=== PATIENT | female | born 1975 | race Caucasian/White ===

== ENCOUNTER 2021-08-17 01:33 | Day surgery (SDC) | payer BC, SELFPAY ==
[2021-08-01 15:14] VITALS: BMI 31.5
--- NOTE | 2021-08-16 13:07 | PM.HPGS ---
History of Present Illness History of Present Illness Consent: Risks, benefits, and alternatives have been discussed and questions answered. Patient agrees to proceed with procedure. Chief complaint: neoplasm screening Narrative: Marisa Venegas is a 45 year old female referred for colon cancer screening Review of Systems Review of Systems: All systems reviewed & are unremarkable except as noted in HPI and below PMFSH Social History Social History Smoking status: Never smoker Alcohol intake: current Alcohol use details: ONCE MONTHLY Living arrangements: with family Spiritual care concerns: No Meds Home Medications and Allergies Home Medications Medication Instructions Recorded Confirmed Type cetirizine 10 mg PO DAILY 08/01/21 08/01/21 History cholecalciferol (vitamin D3) 50 mcg PO DAILY 08/01/21 08/01/21 History [Vitamin D3] metoprolol succinate 12.5 mg PO DAILY 08/01/21 08/01/21 History multivit with min-folic acid 1 tablet PO DAILY 08/01/21 08/01/21 History [Adult One Daily Multivitamin] omega-3 fatty acids-vitamin E 1 cap PO DAILY 08/01/21 08/01/21 History [Fish Oil] Allergies Allergy/AdvReac Type Severity Reaction Status Date / Time No Known Allergies Allergy Verified 08/17/21 06:50 Exam Const: General: alert Orientation/consciousness: patient oriented x3 Resp: Auscultation: clear to auscultation bilaterally Cardio: Rhythm: regular rhythm GI: GI Palp: Yes Soft to palpation and No Tenderness to palpation present (GI) Neuro: General: patient oriented x3 Assessment and Plan Assessment and plan (1) Colon cancer screening: Code(s): Z12.11 - Encounter for screening for malignant neoplasm of colon Status: Acute Assessment and Plan: Colonoscopy with possible biopsy or polypectomy or cautery or injection of substances.
[2021-08-17 06:51] VITALS: BP 144/85; PULSE 110; RESP 18; TEMP 37; O2SAT 98; BMI 33.2
[2021-08-17] MEDS: LACTATED RINGERS 1,000 ML 150 ML IV CONT (07:02)
--- NOTE | 2021-08-17 07:54 | WPDANESEPPF ---
Anes - Initial Pre Proc Eval Procedure: Operation Date: 08/17/21 08:00 Proposed Procedures p Screening Colonoscopy - Jhon Rodríguez MD Date/Time: 08/17/21 07:54 Surgeon: Jhon Rodríguez MD Pre Op Diagnosis: neoplasm screening Patient Data Age: 45 Gender: F Height: 1.65 m Weight: 90.5 kg Last Vital Signs Temp 98.6 F 08/17/21 06:51 Pulse 110 H 08/17/21 06:51 Resp 18 08/17/21 06:51 BP 144/85 H 08/17/21 06:51 Pulse Ox 98 08/17/21 06:51 Allergies Allergy/AdvReac Type Severity Reaction Status Date / Time No Known Allergies Allergy Verified 08/17/21 06:50 Home Medications Medication Instructions Recorded Confirmed Type cetirizine 10 mg PO DAILY 08/01/21 08/01/21 History cholecalciferol (vitamin D3) 50 mcg PO DAILY 08/01/21 08/01/21 History [Vitamin D3] metoprolol succinate 12.5 mg PO DAILY 08/01/21 08/01/21 History multivit with min-folic acid 1 tablet PO DAILY 08/01/21 08/01/21 History [Adult One Daily Multivitamin] omega-3 fatty acids-vitamin E 1 cap PO DAILY 08/01/21 08/01/21 History [Fish Oil] Patient hx anesthesia problems: none Family hx anesthesia problems: none Results Review: All pre-operative results and documents have been reviewed as part of the pre-operative evaluation. [facility] Past Medical History Medical History (Updated 08/17/21 @ 07:49 by Wm Bautista MD) Hypertension SELWYN (obstructive sleep apnea) Social History Social History Smoking status: Never smoker Alcohol intake: current Alcohol use details: ONCE MONTHLY Living arrangements: with family Spiritual care concerns: No Anes - Eval Final PreProcedure Day of Procedure 08/17/21 07:54 Patient weight: obese Heart: regular rate and rhythm Lungs: clear to auscultation Airway: Mallampati scale class II Neurological: alert and oriented Last oral intake: >/= 8 hours ASA classification: II Emergent: no Anesthetic plan: proceed Anesthesia type and monitoring: general GIVS and standard monitoring Results Review: All pre-operative results and documents have been reviewed as part of the pre-operative evaluation. Informed Consent: The patient's anesthetic plan and its attendant risks and benefits were discussed with the patient/family/POA. Questions were solicited and answers provided to the satisfaction of the patient/family/POA.
[2021-08-17 08:26] VITALS: BP 94/58; PULSE 101; RESP 23; O2SAT 97
[2021-08-17 08:36] VITALS: BP 113/65; PULSE 87; RESP 20; O2SAT 96
[2021-08-17 08:46] VITALS: BP 126/73; PULSE 79; RESP 20; O2SAT 98
== END 2021-08-17 08:51 | disposition home or self-care (01) ==
PROVIDERS: PCP Family Medicine; Referring Provider Obstetrics & Gynecology Gynecology; Visit Provider Internal Medicine Gastroenterology
PROC: 0DJD8ZZ Inspection of Lower Intestinal Tract, Via Natural or Artificial Opening Endoscopic (ICD-10-PCS; CPT 45378; principal; 2021-08-17 08:00)
DX: Z12.11 Encounter for screening for malignant neoplasm of colon (principal); I10 Essential (primary) hypertension; G47.33 Obstructive sleep apnea (adult) (pediatric); E66.9 Obesity, unspecified; Z68.33 Body mass index [BMI] 33.0-33.9, adult
CPT/HCPCS: 45378; J2001; J2704; J7120

== ENCOUNTER → 2023-02-19 15:39 | Outpatient (CLI) | payer BC, SELFPAY ==
--- NOTE | ~2023-02-19 | US_ITS ---
EXAMINATION: US pelvic complete DATE: 02/19/2023 16:18 INDICATION: Pelvic pain Comparison:No prior studies for comparison. TECHNIQUE: Multiple transabdominal and endovaginal sonographic images of the pelvis performed. FINDINGS: The uterus measures 11.8 x 5 x 6 cm. The endometrial complex measures 11 mm. The right ovary measures 3 x 2.4 x 2.8 cm and the left ovary measures 3.2 x 2.2 x 2.3 cm. There is a right ovarian cyst measuring 2.3 cm. There are small follicles in each ovary. Normal doppler signal i n both ovaries. There is no free fluid in the pelvis. There are no abnormal masses seen on either side. IMPRESSION: 1. Right ovarian cyst measuring 2.3 cm. 2: Enlarged uterus. Reviewed, dictated and finalized at location B.
== END ==
PROVIDERS: PCP Family Medicine; Visit Provider Nurse Practitioner
DX: R10.813 Right lower quadrant abdominal tenderness (principal); N83.201 Unspecified ovarian cyst, right side; N85.2 Hypertrophy of uterus
CPT/HCPCS: 76856

== ENCOUNTER 2024-01-10 14:06 | Outpatient (CLI) | payer BC, SELFPAY ==
--- NOTE | ~2024-01-10 | US_ITS ---
EXAMINATION: US pelvic complete w TV DATE: 01/10/2024 15:05 INDICATION: pelvic pain TECHNIQUE: Multiple transabdominal and endovaginal sonographic images of the pelvis were obtained. COMPARISON: 02/19/2023. FINDINGS: Uterus: 11.6 x 4.7 x 6.2 cm. 1.4 cm heterogeneous focus in the anterior uterine body. Endometrial com plex measures 6 mm. Right Ovary: Not visualized. Left Ovary: Not visualized. There is no free fluid in the pelvis. IMPRESSION: 1.4 cm intramural fibroid. Otherwise normal appearing uterus. Bilateral ovaries not visualized. Reviewed, dictated and finalized at location K.
== END 2024-01-10 14:07 ==
PROVIDERS: PCP Nurse Practitioner; Visit Provider Nurse Practitioner
DX: R10.2 Pelvic and perineal pain (principal)
CPT/HCPCS: 76830; 76856